=== PATIENT | male | born 1990 | race Hispanic/Latino ===

== ENCOUNTER 2020-01-13 22:41 | Emergency (ER) | payer SELFPAY ==
--- NOTE | ~2020-01-13 | XR_ITS ---
EXAMINATION: XR tibia fibula RT 2V DATE: 01/13/2020 23:37 INDICATION: Right lower leg injury after being kicked by a horse. TECHNIQUE: Anteroposterior and lateral views of the right tibia and fibula were obtained. COMPARISON: None. FINDINGS: Alignment is normal. No fracture. Joint spaces are normal. Small loose osteochondral body at the ante rior process of the tibiotalar joint. Diffuse soft tissue swelling with subcutaneous edema along the mid to distal lateral lower leg most prominent about the lateral malleolus. IMPRESSION: 1. No osseous abnormality. Reviewed, dictated and finalized at location A. IMPRESSION: 1. No osseous abnormality.
--- NOTE | ~2020-01-13 | XR_ITS ---
EXAMINATION: XR foot RT min 3V DATE: 01/13/2020 23:38 INDICATION: Foot injury after being kicked by a horse TECHNIQUE: Dorsoplantar, two oblique and lateral views of the right foot were obtained. COMPARISON: None. FINDINGS: Homolateral Lisfranc dislocation involving at least the first-third tarsal metatarsal joints with fadi r dislocation at the first tarsal metatarsal joint and lesser degrees dorsal lateral subluxation at t he second and third tarsal metatarsal joints. There are fractures involving at least the medial base of the second metatarsal, the lateral distal margin of the medial cuneiform and distal lateral cuneif orm. No other fractures identified. Remaining joint spaces appear relatively preserved. No loose oste ochondral body at the anterior recess of the tibiotalar joint. Soft tissue swelling about the mid and forefoot. IMPRESSION: 1. Homolateral Lisfranc fracture dislocation of at least the first through third tarsometatarsal join ts. Reviewed, dictated and finalized at location A. IMPRESSION: 1. Homolateral Lisfranc fracture dislocation of at least the first through thir d tarsometatarsal joints.
[2020-01-13 22:45] VITALS: BP 158/94; PULSE 115; RESP 18; TEMP 36.8; O2SAT 99
--- NOTE | 2020-01-13 23:06 | ED.LOWEXIN ---
HPI - Extremity Injury (Lower) General Chief Complaint: Extremity Injury, Lower Stated Complaint: right foot pain Time Seen by Provider: 01/13/20 23:02 History of Present Illness HPI Narrative: He was kicked in the right mclean and had his right foot stepped on by a horse yesterday. Had pain in the mclean last night, but not severe. When he awoke this morning the pain was worse and he had extensive bruising and swelling to the lower leg and foot. He is not able to bear weight. Related Data Allergies Allergy/AdvReac Type Severity Reaction Status Date / Time No Known Allergies Allergy Verified 01/13/20 23:09 Review of Systems Review of Systems: All systems reviewed & are unremarkable except as noted in HPI and below Constitutional: Constitutional: Denies fever(s) Respiratory: Respiratory: Denies dyspnea Gastrointestinal: Gastrointestinal: Denies nausea Musculoskeletal: Musculoskeletal: Denies back pain Neurologic: Denies dizziness and Denies weakness Hematologic/Lymphatic: Hematologic/Lymphatic: Denies easy bleeding [facility] Social History Social History (Updated 01/14/20 @ 00:28 by Vineet Pastrana MD) Smoking status: Never smoker Exam Const: General: healthy appearing, no acute distress and alert Orientation/consciousness: patient oriented x3 HENMT: Head: normal to inspection Neck: Neck: normal visual inspection and no lymphadenopathy Chest: Chest palpation & inspection: no tenderness Resp: Effort & Inspection: normal respiratory effort Auscultation: clear to auscultation bilaterally, no rales, no rhonchi and no wheezes Cardio: Jugular venous distension: no JVD Rate: regular rate Rhythm: regular rhythm Heart sounds: no murmurs GI: Inspection: non-distended GI Palp: Yes Soft to palpation and No Tenderness to palpation present (GI) Neuro: General: patient oriented x3 and moves all extremities Speech: normal speech Extrem: Other: Extensive bruising of right lower leg and foot. swelling and tenderness of foot. Motor and sensory grossly intact. Psych: Appearance: grossly normal and well kempt Mental Status: mental status grossly normal Affect: normal affect Thought content: Yes Normal thought content present Course Vital Signs Vital signs: Vital Signs Temperature 36.8 C 01/13/20 22:45 Pulse Rate 115 H 01/13/20 22:45 Respiratory Rate 18 01/13/20 22:45 Blood Pressure 158/94 H 01/13/20 22:45 Pulse Oximetry 99 06/28/20 22:45 Temperature 36.8 C 01/13/20 22:45 Pulse Rate 115 H 01/13/20 22:45 Respiratory Rate 18 01/13/20 22:45 Blood Pressure 158/94 H 01/13/20 22:45 Pulse Oximetry 99 01/13/20 22:45 MDM - Extremity Injury (Lower) MDM Narrative Medical decision making narrative: Marielena coker injury on x-ray. Will transfer to facility with Ortho trauma. Case discussed with ED MD at [facility]. They will take the transfer. Imaging Data Attestation: I personally reviewed and interpreted this imaging study as follows: My impression: Marielena coker fracture dislocation Critical Care Time Critical Care Time Critical Care Time: Yes Total Critical Care Time: 30 Discharge Plan Discharge Clinical Impression: Fracture dislocation of foot Patient Disposition: Acute Care Hospital Condition: Stable Instructions: Foot Fracture in Adults (ED) Additional Instructions: Go straight to [facility] Follow-up/Referrals: PHYSICIAN,FIRE OBSERVER [Primary Care Provider] -
--- NOTE | 2020-01-14 00:30 | PC.NURSE ---
report given to Tea DOUGLAS at [facility]. pt to be taken by private vehicle to [facility] . Pt aware of need to have reduction of fracture in a timely mannor. pt alert, pwd, Brother at bedside agrees to take pt to [facility]
[2020-01-14 01:11] VITALS: BP 127/86; PULSE 83; RESP 20; TEMP 36.7; O2SAT 98
== END 2020-01-14 01:12 | disposition short-term general hospital (02) ==
PROVIDERS: Emergency Provider Emergency Medicine
DX: S93.324A Dislocation of tarsometatarsal joint of right foot, initial encounter (principal); S92.321A Displaced fracture of second metatarsal bone, right foot, initial encounter for closed fracture; S92.241A Displaced fracture of medial cuneiform of right foot, initial encounter for closed fracture; W55.12XA Struck by horse, initial encounter
CPT/HCPCS: 73590; 73630; 99284; A9270